=== PATIENT | female | born 1990 | race Caucasian/White ===

== ENCOUNTER 2021-10-22 05:44 | Inpatient (IN) | payer OTHER, SELFPAY ==
[2021-10-22] VITALS (218 sets, daily range): BP systolic 106–155; BP diastolic 43–120; PULSE 63–153; TEMP 36.3–36.7; O2SAT 97–100; BMI 44.2
--- NOTE | 2021-10-22 06:37 | PM.IMHP ---
H&P: HPI History of Present Illness Date/Time: 10/22/21 06:37 Chief Complaint: term for induction of labor Narrative: this is a 31-year-old 1 para 0 whose last menstrual period was 01/11/2021, EDC is 10/18 21, presents at 40 and half weeks gestation for induction of labor. She is negative for group B strep. Nine week ultrasound confirmed dates. Risks and benefits reviewed FOR[facility]LY [facility], [facility] Family History Family History Father FHx: brain cancer FH: kidney cancer Grandparent Uterine cancer Social History Social History Substance use: never Spiritual care concerns: No Meds Home Medications and Allergies Home Medications Medication Instructions Recorded Confirmed Type cetirizine 10 mg tablet (Zyrtec) 10 mg PO DAILY 09/24/21 09/24/21 History prenat.vits,lizandro,frw-rwwk-ewavw 1 tablet PO HS 09/24/21 09/24/21 History Allergies Allergy/AdvReac Type Severity Reaction Status Date / Time No Known Allergies Allergy Verified 09/24/21 14:06 Exam Resp: Effort & Inspection: normal respiratory effort Cardio: Rate: regular rate Rhythm: regular rhythm GI: Auscultation: normal bowel sounds : External Female Exam: normal external appearance Speculum Exam - Vagina: normal appearance of the vagina Speculum Exam - Cervix: Cervical os closed ( cervix 2/60/2. AROM with light meconium FHTs reassuring) Assessment and Plan Assessment and plan (1) Term : Code(s): Z34.90 - Encounter for supervision of normal , unspecified, unspecified trimester Status: Acute Plan medical induction of labor. Spontaneous vaginal delivery is expected. She has an epidural candidate
[2021-10-22 06:46] LABS: Basophils Absolute Auto 0.1 K/mm3 (0.0-0.1); Basophils Percent Auto 0.5 % (0.2-1.2); Eosinophils Absolute Auto 0.2 K/mm3 (0-0.3); Eosinophils Percent Auto 1.5 % (0-4.4); Hematocrit 36.2 % (37.0-47.0); Hemoglobin 11.4 g/dL (12.0-15.0); Immature Granulocyte Absolute 0.17 K/mm3 (0.00-0.031); Immature Granulocyte Percent A 1.4 % (0-0.5); Lymphocytes Percent Auto 27.1 % (18.3-44.2); Mean Corpuscular HGB Conc 31.5 g/dl (32-36); Mean Corpuscular Hemoglobin 27.7 pg (26-34); Mean Corpuscular Volume 88.1 fl (80-100); Mean Platelet Volume 10.7 fl (7.4-10.4); Monocytes Absolute Auto 0.7 K/mm3 (0.1-0.6); Monocytes Percent Auto 5.7 % (2.6-8.5); Neutrophils Percent Auto 63.8 % (45.5-73.1); Platelet Count Result 321 k/mm3 (150-375); Red Blood Count 4.11 M/mm3 (4.2-5.4); Red Cell Distribution Width 15.9 % (11.5-14.5); White Blood Count 12.6 K/mm3 (4.5-10.0)
[2021-10-22] MEDS: LACTATED RINGERS 1,000 ML 125 ML IV CONT ×2 (06:53→09:54)
[2021-10-22] MEDS: OXYTOCIN 30 UNITS/NS 500 ML 30 UNITS/500 ML BAG IV CONT (06:54)
--- NOTE | 2021-10-22 10:19 | P.PNAN_ITS ---
Anes - Eval Pre Procedure Procedure: Labor pain management Date/Time: 10/22/21 10:19 Preop Diagnosis: Pain during labor Pre Op Diagnosis: IOL Patient Data Age: 31 Gender: F Height: 1.63 m Weight: 117 kg Last Vital Signs Temp 36.3 C L 10/22/21 06:54 Pulse 75 10/22/21 09:30 BP 133/78 10/22/21 09:30 Allergies Allergy/AdvReac Type Severity Reaction Status Date / Time No Known Allergies Allergy Verified 09/24/21 14:06 Home Medications Medication Instructions Recorded Confirmed Type cetirizine 10 mg tablet (Zyrtec) 10 mg PO DAILY 09/24/21 09/24/21 History prenat.vits,lizandro,lkw-aaio-xhnbr 1 tablet PO HS 09/24/21 09/24/21 History Laboratory Tests 10/22/21 10/22/21 10/22/21 06:41 06:41 06:41 WBC 12.6 K/mm3 H K/mm3 (4.5-10.0) RBC 4.11 M/mm3 L M/mm3 (4.2-5.4) Hgb 11.4 g/dL L g/dL (12.0-15.0) Hct 36.2 % L % (37.0-47.0) MCV 88.1 fl fl (80-100) MCH 27.7 pg pg (26-34) MCHC 31.5 g/dl L g/dl (32-36) RDW 15.9 % H % (11.5-14.5) Plt Count 321 k/mm3 k/mm3 (150-375) MPV 10.7 fl H fl (7.4-10.4) Immature Gran % (Auto) 1.4 % H % (0-0.5) Neut % (Auto) 63.8 % % (45.5-73.1) Lymph % (Auto) 27.1 % % (18.3-44.2) [place] % (Auto) 5.7 % % (2.6-8.5) Eos % (Auto) 1.5 % % (0-4.4) Baso % (Auto) 0.5 % % (0.2-1.2) Lymph # (Auto) 3.40 K/mm3 H K/mm3 (0.9-3.2) [place] # (Auto) 0.7 K/mm3 H K/mm3 (0.1-0.6) Eos # (Auto) 0.2 K/mm3 K/mm3 (0-0.3) Baso # (Auto) 0.1 K/mm3 K/mm3 (0.0-0.1) Abs Immat Gran (auto) 0.17 K/mm3 H K/mm3 (0.00-0.031) Absolute Neuts (auto) 8.0 K/mm3 H K/mm3 (1.3-6.7) Absolute Nucleated RBC 0.0 K/mm3 K/mm3 (0.0-0.012) Nucleated RBC % 0.0 % % (0.0-0.2) RPR Pending Blood Type O Positive Antibody Screen Negative Patient hx anesthesia problems: none Family hx anesthesia problems: none Results Review: All pre-operative results and documents have been reviewed as part of the pre- operative evaluation. [facility] Family History Family History Father FHx: brain cancer FH: kidney cancer Grandparent Uterine cancer Social History Social History Smoking packs per day: 0.5 Smoking cigarettes per day: 10.0 Smoking status: Former smoker Tobacco type: cigarettes Second hand tobacco smoke exposure: Yes Substance use: never Spiritual care concerns: No Exam Day of Procedure 10/22/21 10:19 Patient weight: obese Neurological: alert and oriented
[2021-10-22 10:22] LABS: Rapid Plasma Reagin Non-Reactive (NonReactive)
--- NOTE | 2021-10-22 16:32 | PM.OBPNLAB ---
Pain Control Date/time seen: 10/22/21 16:32 Pain control: tolerating well Pelvic Exam Dilation (cm): 5 Effacement (%): 80 station: -1 Amniotic membrane status: Leaking Contractions Monitor mode: Internal Contraction frequency: 2
--- NOTE | 2021-10-22 18:59 | PM.OBPNLAB ---
Pain Control Date/time seen: 10/22/21 18:59 Pain control: tolerating well and epidural Pelvic Exam Dilation (cm): 7 Effacement (%): 80 station: -1 Amniotic membrane status: Leaking Contractions Monitor mode: Internal Contraction frequency: 2
[2021-10-23] VITALS (56 sets, daily range): BP systolic 68–139; BP diastolic 34–74; PULSE 82–179; RESP 16–18; TEMP 36.5–37.1; O2SAT 80–100
--- NOTE | 2021-10-23 01:34 | PM.OBPNLAB ---
Pain Control Date/time seen: 10/23/21 01:34 Pelvic Exam Dilation (cm): 9 Effacement (%): 100 station: -1 Amniotic membrane status: Leaking Contractions Monitor mode: Internal Contraction frequency: 2 Status status: Category ll Assessment and Plan Assessment: other (arrest of descent ) Plan: Comments: Pt has been 9 cm since 2129. She has tried multiple attempts at pushing. caput has extended to +1 but the bony skull remains -1. Discussed this abnormal labor curve with the patient. pt attempted to push for 1 hour without moving the station. pt was counseled on and she would like to proceed with delivery. Risks, benefits, alternatives discussed.
[2021-10-23] MEDS: LACTATED RINGERS 1,000 ML 125 ML IV CONT (01:42)
[2021-10-23] MEDS: KETOROLAC 30 MG/ML VIAL (*BKC) IM (02:10)
--- NOTE | 2021-10-23 02:51 | W.PM.PROC2 ---
Procedure Note - Detailed Date of Procedure 10/23/21 Pre-op Diagnosis arrest of descent Post-op Diagnosis Same Procedure Performed low transverse section Surgeon Myke Cooper MD Anesthesia Spinal and Epidural Indications arrest of descent Findings head in OT position Description of Procedure The patient was taken to the operating room. A combined spinal epidural anesthesic was administered and found to be adequate at a t-10 level. The patient was placed in a supine position with a slight left lateral tilt. A hardwick catheter was placed with return of clear urine. A Bovie grounding pad was placed. Surgical prep was performed and surgical drapes were placed. A surgical time out was performed. A Pfannenstiel skin incision was then made with the scalpel and carried through to the underlying layer of fascia. The fascia was then incised in the midline and the incision was extended laterally with the Foster scissors. The superior aspect of the fascia was then grasped with the Tenzin clamps, elevated, and the underlying rectus muscles dissected off bluntly and sharply. Attention was then turned to the inferior aspect of this incision which, in a similar fashion, was grasped, tented up with the Tenzin clamps, and the rectus muscles dissected off both bluntly and sharply. The rectus muscles were then in the midline. The peritoneum was identified and entered bluntly. The peritoneal incision was then extended superiorly and inferiorly with good visualization of the bladder. The vesico-uterine serosa was identified and dissected to create a bladder flap. The bladder blade was reinserted. The uterus was inspected for rotation. A low-transverse uterine incision was made sharply with the scalpel and entry was made into the uterine cavity. An amniotomy was made and copious amounts of clear fluid were noted on return. The uterine incision was extended laterally bluntly. The bladder blade was removed and the fetus was delivered atraumatically. The nose and mouth were suctioned with a bulb syringe. The umbilical cord was clamped twice and cut. The infant was handed off to the waiting staff. At the time of the delivery, the had good color, tone and grimace. The infant cried with minimal stimulation. A second segment of umbilical cord was clamped and cut for cord blood gasses. Cord blood was collected for determination of the blood type and for direct [place]. The placenta was delivered spontaneously without difficulty. The placenta appeared grossly normal and complete. The uterus was exteriorized and cleared of all clots and debris. The uterine incision was repaired using 0-monocryl suture in a running fashion. A second layer of 0 Monocryl suture was used in an imbricating fashion to obtain excellent hemostasis and uterine strength. The uterine closure was inspected for hemostasis. The posterior aspect of the uterus and the broad ligaments were inspected and the posterior cul-de-sac cleared of fluid and blood clots. The uterine closure was again inspected and found to be hemostatic. The uterus was returned to the abdominal cavity. The pericolic gutters were inspected and were cleared of all blood clots and debris. The uterine closure was then re inspected to ensure hemostasis as were all subfascial tissues. The peritoneum was closed using 3-0 vicryl in a running fashion. The fascia was reapproximated with 0-vicryl in a running fashion. The subcutaneous tissue was irrigated and hemostasis achieved with electrocautery. It was reapproximated with 3-0 vicryl in a running fashion. The skin was closed with 4-0 vicryl in a subcuticular fashion. A sterile dressing was applied to the wound. The patient tolerated the procedure well. Sponge, lap and needle counts were correct times three. The patient was taken to recovery in stable condition and without anticipated complications. Estimated Blood Loss 515 Drains No Packing No Complications No imm
--- NOTE | 2021-10-23 05:20 | OBPPTRN ---
Patient transferred to post room #290 via stretcher. Support person present. Oriented to unit, room, information board, rooming in, admission packet and security measures. Patient verbalizes understanding.
[2021-10-23] MEDS: OXYTOCIN 30 UNITS/NS 500 ML 30 UNITS/500 ML BAG 125 UNITS IV CONT (05:50)
--- NOTE | 2021-10-23 08:58 | PC.NURSE ---
[id number] Introductions were made, then consulted with patient to assess needs related to . Mother led the conversation with her plans to feed her infant and the experience feeding her infant so far. Mother works well with her infant with encouragement and education. Mother is holding infant to the right breast using football positioning after detached from with a nipple shield. Nipple shield provided by primary RN to mother due to ineffective with smooth nipples on large breast. Reviewed good handwashing, cleaning the nipple shield and application. Discussed with mom the nipple shield precautions, possible complications associated with the risks and benefits. Reviewed practicing with a nipple shield, then without and how to protect the milk supply and production. Mom voiced understanding of the importance of hand expression, nipple stimulation and initiating a pumping schedule if infant continues to nurse with the shield. Encouraged understanding of the benefits of skin to skin (unwrapping and placing vertically on her chest), responsive feeding and how to watch for early feeding signs, frequency of feeding on demand about every 8-12 times in 24 hours (every 2-3 hours), milk production, duration of feeding, signs of adequate intake/output and how to record on the feeding sheet. Reviewed positioning and ear, shoulder, hip alignment, supporting the breast, asymmetrical latch (off-center), and leading with the chin with a big open side gape. latched optimally to the left breast in football position using the nipple shield. Attempted to latch without the nipple shield with no success. Education given to mother of how to visualize suck/swallow ratios and drinking at the breast with good rocking motion. Mother is demonstrating understanding of hand expression and compresses breast while infant breastfeeds with a nipple shield. Infant was able to maintain latch without discomfort to mother. Nipple care reviewed with optimal latch and good positioning. Resources used to facilitate learning were used with the tool/mom and baby guide. Mother requested a pump to use and it was brought into the room. Mother voiced she understood to call for assistance learning about the pump when she was ready. Mother voiced understanding of responsive feedings, stimulating with skin to skin, hand expressed colostrum, touch, talking to infant to encourage if it has been 2 -3 hours since the start of the last , to call if infant does not latch or there is discomfort with . Reported to the primary RN.
[2021-10-23] MEDS: DEXTROSE 5%/0.45% SOD CHL 1,000 ML 125 ML IV CONT (10:57)
--- NOTE | 2021-10-23 15:11 | PC.NURSE ---
[id number] Consulted with patient to assess needs related to . Reviewed positioning and alignment, supporting breast, off-centered (asymmetrical latch) and leading with the chin with big open wide gape. attempted latching to the left, then to the right breast in football position using a nipple shield. was unable to maintain latch, held the nipple shield in his mouth, or he bit down on the shield. We changed to cross cradle positioning and latched with the nipple shield to the left for 10 min, then on the right with the nipple shield for 15 minutes. Education given to mother of how to visualize suck/swallow ratios and drinking at the breast. was able to maintain latch without discomfort to mother using a nipple shield. We also attempted without the nipple shield and he made efforts but was unable to effectively latch. Nipple care reviewed with optimal latch and good positioning, hand expression to encourage , and to have clean hands when touching the nipple/breast as needed. Resources used to facilitate learning were used from the visual handout/ tool/mom and baby guide. Mother voiced understanding of the education shared, calling for assistance if the does not latch or if there is discomfort with . Reported to the primary RN.
--- NOTE | 2021-10-23 15:17 | PC.NURSE ---
[id number] Due to infant not latching or swallowing seen blood sugar was taken and resulted at 53mg/dl. Infant voided a diaper of 25 mls of dark urine. Breast pump provided early in the shift due to ineffective with a nipple shield. Instructions given on cleaning, care, usage, that there should be no pain, pumping schedule for milk production, collection, and storage of human milk. Parents are encouraged to record pumping schedule on the feeding sheet. Patient was assessed for correct placement, flange size (21 mm), to pump for comfort and nipple stretching/stimulation for adequate milk production every 3 hours (8 times in 24 hours). Mother finger fed colostrum to her infant. Mother voiced understanding of the education shared along with mom and baby guide for additional resource information. Reported to the primary RN.
[2021-10-23] MEDS: KETOROLAC 30 MG/ML VIAL (*BKC) IV PUSH (15:20)
[2021-10-23] MEDS: HYDROcodone/acetaminophen (*CRX) 5-325 MG TABLET 1 TAB PO (17:41)
[2021-10-23] MEDS: DOCUSATE SODIUM 100 MG CAPSULE PO (17:42)
[2021-10-23] MEDS: HYDROcodone/acetaminophen (*CRX) 10-325 MG TABLET 1 TAB PO (22:44)
[2021-10-24] MEDS: HYDROcodone/acetaminophen (*CRX) 10-325 MG TABLET 1 TAB PO ×4 (03:48→22:45)
[2021-10-24 04:56] LABS: Basophils Percent Auto 0.2 % (0.2-1.2); Eosinophils Absolute Auto 0.2 K/mm3 (0-0.3); Eosinophils Percent Auto 1.2 % (0-4.4); Hematocrit 26.5 % (37.0-47.0); Hemoglobin 8.5 g/dL (12.0-15.0); Immature Granulocyte Absolute 0.11 K/mm3 (0.00-0.031); Immature Granulocyte Percent A 0.8 % (0-0.5); Lymphocytes Absolute Auto 3.08 K/mm3 (0.9-3.2); Lymphocytes Percent Auto 22.2 % (18.3-44.2); Mean Corpuscular HGB Conc 32.1 g/dl (32-36); Mean Corpuscular Hemoglobin 28.5 pg (26-34); Mean Corpuscular Volume 88.9 fl (80-100); Mean Platelet Volume 10.3 fl (7.4-10.4); Monocytes Absolute Auto 0.9 K/mm3 (0.1-0.6); Monocytes Percent Auto 6.6 % (2.6-8.5); Neutrophils Absolute Auto 9.6 K/mm3 (1.3-6.7); Platelet Count Result 242 k/mm3 (150-375); Red Blood Count 2.98 M/mm3 (4.2-5.4); Red Cell Distribution Width 16.3 % (11.5-14.5); White Blood Count 13.9 K/mm3 (4.5-10.0)
--- NOTE | 2021-10-24 06:58 | P.PNOB_ITS ---
OB - PN: Subj Subjective Date/time seen: 10/24/21 06:58 Patient comments: no complaints and pain well controlled baby status: doing well and nursing well OB - PN: Obj Data Labs CBC & Chem 7: 10/24/21 04:48 Labs: Laboratory Results - last 24 hr 10/24/21 04:48 WBC 13.9 H RBC 2.98 L Hgb 8.5 L Hct 26.5 L MCV 88.9 MCH 28.5 MCHC 32.1 RDW 16.3 H Plt Count 242 MPV 10.3 Immature Gran % (Auto) 0.8 H Neut % (Auto) 69.0 Lymph % (Auto) 22.2 [place] % (Auto) 6.6 Eos % (Auto) 1.2 Baso % (Auto) 0.2 Lymph # (Auto) 3.08 [place] # (Auto) 0.9 H Eos # (Auto) 0.2 Baso # (Auto) 0.0 Abs Immat Gran (auto) 0.11 H Absolute Neuts (auto) 9.6 H Absolute Nucleated RBC 0.0 Nucleated RBC % 0.0 OB - PN A/P Assessment and Plan (1) Term : Code(s): Z34.90 - Encounter for supervision of normal , unspecified, unspecified trimester Status: Acute Plan day: 1 Plan: routine care Time Spent With Patient Time: Total time spent is greater than 50% in coordination of care (as documented) at patient's floor/unit and/or counseling patient: Time with patient: less than 15 minutes Exam GI: Inspection: normal to inspection Percussion: Yes other (Wound is clean dry and intact)
[2021-10-24] MEDS: IBUPROFEN 600 MG TABLET PO ×3 (08:53→22:45)
[2021-10-24] MEDS: MULTIVIT/MIN/PREN/FOL AC/IRON TABLET 1 TAB PO (08:54)
[2021-10-24] MEDS: POLYSACCHARIDE IRON COMPLEX 150 MG CAPSULE PO ×2 (08:54→15:46)
[2021-10-24] MEDS: DOCUSATE SODIUM 100 MG CAPSULE PO ×2 (08:54→15:47)
[2021-10-24 09:00] VITALS: BP 113/63; PULSE 93; RESP 18; TEMP 36.6; O2SAT 100
--- NOTE | 2021-10-24 13:00 | WPDANLDPN2 ---
Anes-Prog Note L&D Date/Time: 10/24/21 13:00 Comfortable throughout: labor and section Neuraxial method: epidural Epidural/Spinal procedure site: clean & non-tender Neuro status: Neuro function grossly intact. Cardiovascular status: normal Respiratory status: normal Airway patency: baseline Mental status: baseline Post-Op hydration status: normal Vital Signs: Last Vital Signs Temp 36.6 C 10/24/21 09:00 Pulse 93 10/24/21 09:00 Resp 18 10/24/21 09:00 BP 113/63 10/24/21 09:00 Pulse Ox 100 10/24/21 09:00 O2 Del Method Room Air 10/24/21 09:00 Pain score (VAS): 2/10 I/O: Intake & Output 10/23/21 10/24/21 10/24/21 23:59 07:59 15:59 Intake Total 1500 300 Output Total 400 Balance 1100 300 Post-procedural complaints: none Patient feedback: Patient satisfied with anesthetic care.
--- NOTE | 2021-10-24 13:00 | WPDANLDNPN2 ---
Anes-Prog Note L&D-Neuraxial Date/Time: 10/24/21 13:00 Neuraxial medications: epidural PF morphine Opiod-related complaints: none Patient feedback: Patient satisfied with post-operative pain management.
--- NOTE | 2021-10-24 14:19 | PC.NURSE ---
1405 - Consulted with patient to assess needs related to . Mother led the conversation with her?plans to feed?her with pumping and bottle feeding. Resources provided for inpatient and outpatient services using a resource guide and mom/baby guide. Mother voiced understanding of information and will call if there is a request for assistance. Reported to primary RN.
[2021-10-24 20:15] VITALS: BP 129/75; PULSE 95; RESP 16; TEMP 36.6; O2SAT 100
--- NOTE | 2021-10-25 07:19 | P.DS_ITS ---
DS: Admitting Diagnosis Discharge Date 10/25/2021 Admitting Diagnosis l gestational hypertension at term DS: Discharge Diagnosis Discharge Diagnosis (1) Term : Code(s): Z34.90 - Encounter for supervision of normal , unspecified, unspecified trimester Status: Acute DS: Summary Hospital Course Reason for hospitalization: induction of labor at term Hospital Course: this is a 31-year-old 1 para 0 admitted at term for induction of labor secondary to postdates. Her hospital course was unremarkable following the C- section for failure to progress. She remained afebrile. She was up, voiding without difficulty, ambulating, eating regular diet, and generally without complaints. Time Spent with Patient Time attestation: Total time spent providing and/or coordinating discharge services: Discharge Plan Discharge Attending physician on discharge: Brandon Melendez Discharging Clinician: Brandon Melendez Patient Disposition: Home, Self-Care Activity: may shower, no straining and pelvic rest Diet: heart healthy Wound Care Instructions: follow printed instructions Patient Instructions: Antibiotic Form Stand Alone Forms: General Discharge Information Follow-up/Referrals: Brandon Melendez MD [Physician] - Discharge Medications: New hydrocodone-acetaminophen 5-325 mg tablet 1 tablet PO Q4H PRN (Reason: pain) Qty: 30 0RF Continued cetirizine [Zyrtec] 10 mg Tablet 10 mg PO DAILY #2 Tablet 1 tablet PO HS Date of admission: 10/22/21 05:44 Primary Care Provider: PHYSICIAN,ONION TIER Admitting Provider: Brandon Melendez Attending physician on admission: Brandon Melendez Condition: Stable
[2021-10-25] MEDS: DOCUSATE SODIUM 100 MG CAPSULE PO (07:57)
[2021-10-25] MEDS: MULTIVIT/MIN/PREN/FOL AC/IRON TABLET 1 TAB PO (07:57)
[2021-10-25] MEDS: IBUPROFEN 600 MG TABLET PO (07:58)
[2021-10-25] MEDS: HYDROcodone/acetaminophen (*CRX) 10-325 MG TABLET 1 TAB PO (07:58)
[2021-10-25 08:00] VITALS: BP 120/65; PULSE 91; RESP 16; TEMP 37.4; O2SAT 98
[2021-10-25] MEDS: POLYSACCHARIDE IRON COMPLEX 150 MG CAPSULE PO (08:00)
--- NOTE | 2021-10-25 10:55 | PC.NURSE ---
Patient viewed the discharge video Mother & Baby Care, The First Two Weeks . Patient was given the opportunity and encouraged to ask questions. Patient verbalized understanding of information shared and has been given the mother/baby guide for home reference.
[2021-10-28 10:10] VITALS: BP 115/74; PULSE 108; RESP 20; TEMP 37.2
== END 2021-10-25 11:30 | disposition home or self-care (01) | DRG 788 ==
LOC: ANHLDR 10:21 → ANHOB2 10-23 05:36
PROVIDERS: Student in an Organized Health Care Education/Training Program; Admitting Provider Obstetrics & Gynecology; Visit Provider Obstetrics & Gynecology
PROC: 10D00Z1 Extraction of Products of Conception, Low, Open Approach (ICD-10-PCS; CPT 59514; principal; 2021-10-23 01:30)
DX: O62.1 Secondary uterine inertia (principal); O13.4 Gestational [pregnancy-induced] hypertension without significant proteinuria, complicating childbirth; O77.0 Labor and delivery complicated by meconium in amniotic fluid; O76 Abnormality in fetal heart rate and rhythm complicating labor and delivery; O69.81X0 Labor and delivery complicated by cord around neck, without compression, not applicable or unspecified; Z3A.40 40 weeks gestation of pregnancy; Z37.0 Single live birth
CPT/HCPCS: 36415; 85025; 86592; 86850; 86900; 86901; A9270; J0131; J1885; J2274; J2590; J2795; J7120